=== PATIENT | male | born 1995 | race Caucasian/White ===

== ENCOUNTER 2024-07-20 15:35 | Outpatient (CLI) | payer OTHER, SELFPAY ==
--- NOTE | ~2024-07-20 | US_ITS ---
EXAMINATION:US venous doppler LE BI INDICATION:Left foot swelling TECHNIQUE: Multiple grayscale, color flow and Doppler images of the right and left lower extremity de ep venous systems were obtained and reviewed. COMPARISON:No prior studies for comparison. FINDINGS: The common femoral, superficial femoral and popliteal veins demonstrate normal respiratory variation, augmentation and compressibility. Color flow is also seen within the posterior tibial, pe roneal, greater saphenous and profunda veins. IMPRESSION: 1: No lower extremity deep venous thrombosis. Reviewed, dictated and finalized at location B.
[2024-07-20 16:20] LABS: Alanine Aminotransferase 26 U/L (6-50); Albumin Level 4.4 g/dL (3.5-5.1); Alkaline Phosphatase 65 U/L (38-126); Anion Gap 8 mmol/L (4-12); Aspartate Amino Transferase 28 U/L (17-59); Bilirubin,Total 0.4 mg/dL (0.2-1.3); Blood Urea Nitrogen 14 mg/dL (9-20); Calcium 9.3 mg/dL (8.4-10.2); Carbon Dioxide 26 mmol/L (22-30); Chloride 106 mmol/L (98-107); Estimated Glomerular Filt Rate > 60; Glucose 85 mg/dL (65-110); Potassium 4.2 mmol/L (3.4-5.0); Sodium 140 mmol/L (137-145); Total Protein 7.6 g/dL (6.3-8.2)
--- OUTSIDE RECORDS SUMMARY | 2024-07-20 17:16 | XMS_ITS | Clinical Summary ---
Author Organization [facility] Address [address] [place] [address] Phone Care Team Providers Care Veterans Service Officer Name Role Phone Unavailable Primary Care Provider Unavailabl e Allergies No known active allergies Medications Saccharomyces boulardii (FLORASTOR) 250 mg Capsule Take by mouth. Active pantoprazole (PROTONIX) 20 mg Tablet, Delayed Release (E.C.) Take 1 Tablet (20 mg) by mouth daily. 30 Tablet 6 06/26/2020 Active Active Problems Problem Noted Date Diagnosed Date Irritable bowel syndrome 06/26/2020 Epigastric abdominal pain 06/26/2020 Hypersomnia 05/08/2020 Immunizations Immunization Administration Dates Next Due Influenza Seasonal Unspecified Formulation IM Family History Medical History Relation Name Comments Asthma Brother Hypertension Maternal Grandmother Cancer Mother Bronchitis Neg Hx Colon Cancer Neg Hx Diabetes Neg Hx Emphysema Neg Hx Heart Failure Neg Hx Lung Cancer Neg Hx Mesothelioma Neg Hx Relation Name Status Comments Brother Maternal Grandmother Mother Social History Tobacco Use Types Packs/Day Years Used Date Smoking Tobacco: Every Day Smokeless Tobacco: Never Sex and Gender Information Value Date Recorded Sex Assigned at Not on file Legal Sex Male 5:18 PM CDT Gender Identity Not on file Sexual Orientation Not on file Last Filed Vital Signs Vital Sign Reading Time Taken Comments Blood Pressure 100/68 06/26/2020 9:21 AM CDT Pulse 78 06/26/2020 9:21 AM CDT Temperature - - Respiratory Rate 14 05/08/2020 10:38 AM CDT Oxygen Saturation 98% 05/08/2020 10:38 AM CDT RA Inhaled Oxygen Concentration - - Weight 99.8 kg (220 lb) 06/26/2020 9:21 AM CDT Height 177.8 cm (5' 10) 06/26/2020 9:21 AM CDT Body Mass Index 31.57 06/26/2020 9:21 AM CDT Plan of Treatment Health Maintenance Due Date Last Done Comments HEPATITIS B VACCINES (1 of 3 - 19+ 3-dose series) 2014 INFLUENZA VACCINE (#1) 2023 , 03/06/2020 DTAP/TDAP/TD VACCINES (2 - Td or Tdap) 03/20/2030 03/20/2020 HPV VACCINES Aged Out No longer eligi ble based on patient's age to complete this topic
--- OUTSIDE RECORDS SUMMARY | 2024-07-20 17:16 | XMS_ITS | Clinical Summary ---
Author Organization [facility] Address [address] [place] [address] Phone Care Team Providers Care Corporate Paralegal Name Role Phone Provider, None Primary Care Provider Unavailabl e Allergies No known active allergies Medications pantoprazole (PROTONIX) 40 MG Tablet Delayed Response 03/01/2020 Active Active Problems No known active problems Immunizations Immunization Administration Dates Next Due TDAP Vaccine 02/04/2023 Social History Tobacco Use Types Packs/Day Years Used Date Smoking Tobacco: Former Smokeless Tobacco: Never Sex and Gender Information Value Date Recorded Sex Assigned at Not on file Legal Sex Male 8:08 PM CDT Gender Identity Not on file Sexual Orientation Not on file Last Filed Vital Signs Vital Sign Reading Time Taken Comments Blood Pressure 95/75 02/04/2023 3:08 PM TRAY PACKER Pulse 97 02/04/2023 3:08 PM TRAY PACKER Temperature 36.5 C (97.7 F) 02/04/2023 3:08 PM TRAY PACKER Respiratory Rate 16 02/04/2023 3:08 PM TRAY PACKER Oxygen Saturation 98% 02/04/2023 3:08 PM TRAY PACKER Inhaled Oxygen Concentration - - Weight 108.9 kg (240 lb) 02/04/2023 3:08 PM TRAY PACKER Height 175.3 cm (5' 9) 02/04/2023 3:08 PM TRAY PACKER Body Mass Index 35.44 02/04/2023 3:08 PM TRAY PACKER Plan of Treatment Health Maintenance Due Date Last Done Comments Hepatitis C Virus (HCV) Screening 1995 Human Papillomavirus (HPV) Immunization (1 - Male 3-dose series) 2010 Hepatitis B Immunization (1 of 3 - 19+ 3-dose series) 2014 SARS-COV-2 Immunization ( season) 2023 09/01/2020, 08/07/2020 Influenza Immunization (Seas on Ended) 2024 03/20/2020, 03/06/2020 Respiratory Syncytial Virus (RSV) Immunization (Adult) (1 - 1-dose 75+ series) 2070 DTaP/Tdap/Td Immunization Discontinued 2022, 03/20/2020 Meningococcal Immunization (ACWY) Aged Out No longer eligible based on patient's age to complete this topic Pneumococcal Immunization Combined Aged Out No longer eligible based on patient's age to complete this topic Rotavirus Immunization Aged Out No lo nger eligible based on patient's age to complete this topic Insurance [employer] Care Teams Corporate Paralegal Relationship Specialty Start Date End Date Provider, None [place] PCP - General 02/04/23
--- OUTSIDE RECORDS SUMMARY | 2024-07-20 17:16 | XMS_ITS | Clinical Summary ---
Author Organization [facility] [address] [facility] lt Address [address] [place] [address] Care Team Providers Care Pharmacology Associate Name Role Phone Xavi Levine MD Primary Care Provider [phone] Allergies No known active allergies Medications Lactobacillus acidophilus (PROBIOTIC ORAL) Take by mouth Active pantoprazole DR (PROTONIX) 40 mg EC tablet Take 1 tablet (40 mg total) by mouth daily 30 tablet 1 03/01/2020 Active Active Problems Problem Noted Date Diagnosed Date Class 1 obesity due to exces s calories without serious comorbidity with body mass index (BMI) of 31.0 to 31.9 in adult 03/20/2020 Chronic pain of right knee 03/20/2020 Resolved Problems Problem Noted Date Diagnosed Date Resolved Date Pediatric overweight 08/30/2009 021 Overview (05/16/2016): Overweight for pediatric patient Immunizations Immunization Administration Dates Next Due DTaP 5 Pertussis 03/01/2020(Deferred: Patient Refused),02/09/2019(Deferred: Patient Refused) Influenza, Quadrivalent, Spl it, Preservative Free, Intramuscular 03/20/2020 Influenza, Split 04/24/2011 Influenza, Unspecified 03/01/2020(Deferr ed: Patient Refused),02/09/2019(Deferred: Patient Refused) Tdap 03/20/2020 Surgical History Surgery Date Site/Laterality Comments EAR SURGERY 02/09/2007 - 02/09/2008 Medical History Medical History Date Comments Hx Other Medical 2006 R hearing loss Hx Other Medical 2002 tubes Hx Other Medical 2005 mass removed fr om inner ear Hx Other Medical 2007 reconstruction of ear bones Abdominal pain terrible pain pe r patient Sleeping difficulties wakes up 6 times per night Knee pain right knee, rand omly feels painful Pneumonia 09/2019 Family History Medical History Relation Name Comments Asthma Brother Car Accident Father car accident; C ause of : car accident Hypertension Maternal Grandfather Hyperte nsion; Diabetes Maternal Grandmother Diabete s mellitus; Hypertension Maternal Grandmother Hyperte nsion; Hypertension Mother Chichi Hypertension; Hypertension Paternal Grandfather Hyperte nsion; Other Paternal Grandmother Unknown ; Relation Name Status Comments Brother Alive Father (Age 24) Maternal Grandfather Maternal Grandmother Mother Chichi Alive Paternal Grandfather Paternal Grandmother Social History Tobacco Use Types Packs/Day Years Used Date Smoking Tobacco: Every Day Vaping Smokeless Tobacco: Never Tobacco Cessation:Ready to Q uit: No; Counseling Given: Yes Alcohol Use Standard Drinks/Week Comments Yes 0 (1 standard drink = 0.6 oz pur e alcohol) 2-3 times per month PHQ-2 Answer Date Recorded PHQ-2 Total Score (If total score is 3 or more points, staff should administer the PHQ-9) 2 03/01/2020 Sex and Gender Information Value Date Recorded Sex Assigned at Not on file 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 Gender Identity Not on file Sexual Orientation Not on file Obstetrics History Last Filed Vital Signs Vital Sign Reading Time Taken Comments Blood Pressure 163/63 06/15/2021 7:54 PM CDT Pulse 91 06/15/2021 7:54 PM CDT Temperature 36.7 C (98 F) 06/15/2021 7:52 PM CDT Respiratory Rate 17 06/15/2021 7:54 PM CDT Oxygen Saturation 100% 06/15/2021 7:54 PM CDT Inhaled Oxygen Concentration - - Weight 95.3 kg (210 lb) 06/15/2021 7:54 PM CDT Height 177.8 cm (5' 10) 06/15/2021 7:54 PM CDT Body Mass Index 30.13 06/15/2021 7:54 PM CDT Plan of Treatment Not on file Insurance [facility] Care Teams Pharmacology Associate Relationship Specialty Start Date End Date Xavi Levine MD [address] [place] [address] PCP - General Family Medicine 03/01/20
--- OUTSIDE RECORDS SUMMARY | 2024-07-20 17:16 | XMS_ITS | Referral Summary ---
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
--- OUTSIDE RECORDS SUMMARY | 2024-07-20 17:47 | XMS_ITS | Clinical Summary ---
Author Organization [facility] Address [address] [place] [address] Phone Care Team Providers Care Tele Marketing Executive Name Role Phone Provider, None Primary Care [...] Comments Blood Pressure 95/75 02/04/2023 3:08 PM RAWHIDE TRIMMER Pulse 97 02/04/2023 3:08 PM RAWHIDE TRIMMER Temperature 36.5 C (97.7 F) 02/04/2023 3:08 PM RAWHIDE TRIMMER Respiratory Rate 16 02/04/2023 3:08 PM RAWHIDE TRIMMER Oxygen Saturation 98% 02/04/2023 3:08 PM RAWHIDE TRIMMER Inhaled Oxygen Concentration - - Weight 108.9 kg (240 lb) 02/04/2023 3:08 PM RAWHIDE TRIMMER Height 175.3 cm (5' 9) 02/04/2023 3:08 PM RAWHIDE TRIMMER Body Mass Index 35.44 02/04/2023 3:08 PM RAWHIDE TRIMMER Plan of Treatment Health Maintenance Due Date [...] age to complete this topic Insurance [facility] Care Teams Tele Marketing Executive Relationship Specialty Start Date End Date Provider, None [place] PCP - General 02/04/23
--- OUTSIDE RECORDS SUMMARY | 2024-07-20 17:47 | XMS_ITS | Clinical Summary ---
Author Organization [facility] Address [address] [place] [address] Phone Care Team Providers Care Medical Planner Name Role Phone Unavailable Primary Care Provider [...]
--- OUTSIDE RECORDS SUMMARY | 2024-07-20 17:47 | XMS_ITS | Referral Summary ---
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
--- OUTSIDE RECORDS SUMMARY | 2024-07-20 17:47 | XMS_ITS | Clinical Summary ---
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
== END 2024-07-20 15:36 | disposition home or self-care (01) ==
DX: R22.43 Localized swelling, mass and lump, lower limb, bilateral (principal)
CPT/HCPCS: 36415; 80053; 93970